=== PATIENT | male | born 1990 | race Caucasian/White ===

== ENCOUNTER 2025-01-13 12:54 | Emergency (ER) | payer BC, SELFPAY ==
[2025-01-13 12:57] VITALS: BP 141/98
[2025-01-13 13:11] LABS: Hematocrit 45.1 % (39.0-52.0); Hemoglobin 15.3 g/dL (13.0-18.0); Mean Corp Hgb Conc. 33.9 g/dL (33.0-37.0); Mean Corpuscular Volume 88.4 fL (80.0-94.0); Nucleated Red Blood Cells % 0 % (-); Platelet Count 291 10^3/uL (130-400); Red Cell Dist. Width 11.9 % (11.5-14.5)
[2025-01-13 13:30] LABS: Blood Urea Nitrogen 11 mg/dl (9-20); Calcium 10.1 mg/dl (8.4-10.2); Carbon Dioxide 27 mmol/L (22-30); Chloride 105 mmol/L (98-107); Glucose 103 mg/dl (70-99); Sodium 142 mmol/L (135-145); eGFR > 60.00
[2025-01-13 13:35] LABS: Troponin I < 0.012 ng/ml
--- NOTE | 2025-01-13 14:46 | ED.GENMED ---
History of Present Illness
General
Chief Complaint: Heart Rate Problem
Source: patient, spouse and family
Exam Limitations: none
Time Seen by Provider: 01/13/25 14:44
Nursing documentation reviewed up to this point in time: agreed with
History of Present Illness
History of Present Illness:
Note:
CHIEF COMPLAINT(S)
Palpitations.
HISTORY OF PRESENT ILLNESS
The patient is a 34-year-old male with a three-month history of hypertension. He has been experiencing episodes of heart palpitations, the most recent of which led him to seek emergency care. The patient was concerned he was going into cardiac
arrest. He reports feeling his heart rate significantly increased for about an hour today, though it improved without intervention. His heart rate was noted to be around 150 beats per minute initially. The patient described feeling improved upon
arrival at the emergency department. He reported previous episodes of similar symptoms over the past three months. The patient recently stopped a beta deborah prescribed for blood pressure management after experiencing side effects. He is currently
taking Lorazepam as a rescue medication for stress. The patient consumes alcohol and experiences withdrawal and dehydration symptoms following consumption, which may exacerbate his symptoms. He reports some stress and occasional caffeine
consumption. Recent blood work, including testosterone levels, a hormone panel, and hemoglobin A1c, was conducted at [facility], although results are still pending. The patient consumes nicotine in the form of Zyns.
SOCIAL DETERMINANTS AFFECTING HEALTH
The patient admits to occasional alcohol and caffeine consumption, potentially contributing to his symptoms. Stress is also noted to be a contributing factor.
MEDICATIONS
- Lorazepam (as needed)
- Buspirone (recently started)
- Omeprazole
- Nicotine products (Zyns)
PHYSICAL EXAM
General: Alert, no acute distress.
Skin: Warm, dry.
Head: Normocephalic, atraumatic.
Neck: Supple, trachea midline.
Eyes, Ears, Nose, Mouth and Throat: Oral mucosa moist.
Cardiovascular: Normal peripheral perfusion, No edema.
Respiratory: Respirations are non-labored.
Gastrointestinal: Abdomen nondistended.
Back: Normal range of motion, Normal alignment.
Musculoskeletal: Normal range of motion, normal strength.
Neurological: Alert and oriented to person, place, time, and situation, No focal neurological deficit observed.
Psychiatric: Cooperative, appropriate mood & affect.
PLAN
1. Follow-up with Dr. Addison for continued cardiology evaluation.
2. Consideration for a heart monitor to assess heart rhythm.
3. Continue Omeprazole for gastric symptoms, with a switch to intravenous Protonix for stronger acid suppression if needed.
4. Avoid stimulants such as caffeine and alcohol, which may exacerbate symptoms.
5. Evaluate recent blood work when results become available.
6. Chest X-ray to assess any acute changes.
DIFFERENTIAL DIAGNOSIS
The Differential Diagnosis includes, in no particular order and is not limited to:
1. Anxiety-related tachycardia
2. Paroxysmal supraventricular tachycardia
3. Atrial fibrillation
4. Premature ventricular contractions
5. Hyperthyroidism
6. Mitral valve prolapse
7. Electrolyte imbalance
8. Catecholamine surge from alcohol withdrawal
9. Panic disorder
10. Sinus tachycardia caused by stress or stimulants.
EKG
My independent EKG interpretation is:
- Time of EKG: Not specified
- Rhythm: Sinus tachycardia
- Heart rate: 119 bpm
- NV interval: Normal
- QRS duration: Normal
- QT interval: Normal
- Claude: Normal
- Abnormalities: None observed
Disposition:
SUMMARY OF ENCOUNTER
The patient presented with tachycardia and a history of alcohol use. Upon evaluation, the tachycardia was determined to be likely related to alcohol intoxication. The patient was offered resources for alcohol rehabilitation but declined. The
patients was also provided with resources for alcohol rehabilitation and expressed a willingness to pursue them independently. Pulmonary embolism (PE) and acute coronary syndrome (ACS) were not suspected. The patient was stable for discharge.
DISPOSITION
Discharge.
ASSESSMENT
Tachycardia likely related to alcohol intoxication.
PATIENT EDUCATION AND COUNSELING
The patient was offered resources for alcohol rehabilitation, which he declined. His was privately counseled and provided with resources for alcohol rehab, expressing her intention to pursue them independently.
FOLLOW-UP INSTRUCTIONS
The patient and his were encouraged to seek resources for alcohol rehabilitation.
MEDICAL DECISION MAKING
- Number and Complexity of Problems Addressed: Chronic conditions affecting care include the patients alcohol use. Differential diagnosis includes anxiety-related tachycardia, paroxysmal supraventricular tachycardia, atrial fibrillation, premature
ventricular contractions, hyperthyroidism, mitral valve prolapse, electrolyte imbalance, catecholamine surge from alcohol withdrawal, panic disorder, and sinus tachycardia caused by stress or stimulants.
- Data:
Category 1
My independent interpretation of EKG indicates sinus tachycardia with a heart rate of 119 beats per minute.
Category 3
Discussed management options with the patients including resources for alcohol rehabilitation.
- Risk:
Consideration of Admission/Observation: Escalation of care including admission/observation was considered given the complexity and risk of the patients presenting complaint and underlying comorbidities. However, ultimately the patient was deemed
safe for outpatient management with close follow-up. Work-up was reassuring, did not reveal any acute life/organ threatening processes, patients symptoms were well controlled upon reevaluation, examination was reassuring, vitals were stable, patient
agreeable with discharge, and reliable for follow-up.
Care significantly affected by Social Determinants of Health: The patients alcohol use contributes to his health issues and complications.
DIAGNOSIS
1. Tachycardia, likely related to alcohol intoxication, ICD-10 code R00.0.
2. Alcohol use disorder, ICD-10 code F10.10.
Past History
Past History
ED Past Medical History: Psychiatric (Generalized anxiety disorder)
ED Past Surgical History: Orthopedic
Social History
Tobacco: Smoker
Alcohol: Occasional
Drug: None
Personal:
Living: with family
Employment: Employed
Family History
Family History: Unable to obtain
Phy Exam
Physical Exam
Physical Exam:
.
Course
Orders/Labs/Results
Orders:
Orders
01/13/25 12:55
EKG [Electrocardiogram (*1)] Urgent
Reason for Study: Tachycardia
EKG- Treatment ONCE
01/13/25 12:56
IV Insert/Care/Rem.- Treatment PRN
01/13/25 13:05
Alcohol Urgent
Basic Metabolic Panel Urgent
Complete Blood Count/With Diff Urgent
Troponin I Urgent
01/13/25 15:01
IV Insert/Care/Rem.- Treatment PRN
0.9% Sodium Chloride 1000 ml [Nss] 1,000 ml IV BOLUS
Pantoprazole [Protonix IV] 40 mg IV NOW STA
CR Chest - 2 Views Urgent
Comment:
Reason For Exam: palpitations
01/13/25 15:49
Add On- LAB Urgent
Tests Added?: alcohol
Abnormal Lab Results
01/13/25
13:05
Glucose 103 H mg/dl
(70-99)
01/13/25 13:05
01/13/25 13:05
Vital Signs
Initial and Last Documented VS:
Initial Vital Signs
Temp Pulse Resp BP Pulse Ox
98.2 F 122 15 141/98 97
01/13/25 12:57 01/13/25 12:57 01/13/25 12:57 01/13/25 12:57 01/13/25 12:57
Last Documented Vital Signs
Temp Pulse Resp BP Pulse Ox
98.2 F 102 19 132/91 98
01/13/25 12:57 01/13/25 17:45 01/13/25 17:45 01/13/25 15:57 01/13/25 16:04
*Pulse Oximetry
SaO2: 97
Oxygen Mode of Delivery: Room air
Patient hypoxic: no
*Critical Care Note
Total Time (30-74mins, 75-104mins- exclusive of procedures): Not Applicable
ED Attending Note
-
Portions of this chart may have been created with voice recognition software.� Occasional wrong word or��sound alike� substitutions may have occurred due to the inherent limitations of voice recognition software.
Discharge Plan
Departure
Patient Disposition: Home (Routine Discharge)
Date of Disposition: 01/13/25
Time of Disposition: 17:19
Patient with high blood pressure during this ER visit?: Yes
Condition: Good
Discharge Problem:
Alcohol intoxication, Tachycardia
Instructions: Alcohol use - When is drinking a problem?, Tachycardia, Alcohol intoxication - ED (DC), BLOOD PRESSURE
Prescriptions:
No Action
No Meds [No Current Medications]
0
ondansetron HCl 4 MG tablet
4 mg PO Q8HPRN PRN (Reason: nausea) Qty: 10 0RF
lorazepam 0.5 MG tablet
0.5 mg PO Q4HPRN PRN (Reason: dizziness) Qty: 15 0RF
methylprednisolone [Medrol ([place])] 4 mg tablets,dose pack
4 mg PO DAILY Qty: 21 0RF
oxycodone-acetaminophen [Percocet] 5-325 mg tablet
1 tab PO Q4HPRN PRN (Reason: pain) Qty: 14 0RF
clindamycin HCl 300 mg capsule
300 mg PO Q6H 10 Days Qty: 40 0RF
Referrals:
Girish Parsons DO [Active, Cardiology] - Call in 1-3 days for appt
Jose Goetz DO [Family Provider, Family Practice]
Interventions
Interventions:
*Risk Screen - Suicide Last Done: 01/13/25 12:57
*General Assessment Last Done: 01/13/25 12:57
*Neglect/Abuse Screening Last Done: 01/13/25 12:57
*ED- Fall Risk Assessment Last Done: 01/13/25 15:55
*ED COVID-19 Vaccine History Last Done: 01/13/25 12:57
*ED Influenza Vaccine History Last Done: 01/13/25 12:57
*Nursing Disposition Last Done: 01/13/25 17:57
ED- Cardiac Assessment Last Done: 01/13/25 16:03
ED- Pulmonary Assessment Last Done: 01/13/25 16:03
Discharge Date and Time
Discharge Date/Time: 01/13/25 18:12
Print Language: [place]
[2025-01-13 15:23] VITALS: BMI 28.7
[2025-01-13] MEDS: PROTONIX IV 40 MG IV (15:31)
[2025-01-13] MEDS: NSS 1000 IV (15:31)
[2025-01-13 15:57] VITALS: BP 132/91
== END 2025-01-13 18:12 | disposition home or self-care (01) ==
LOC: EMR 12:54
PROVIDERS: Emergency Medicine; EMERGENCY PHYSICIAN Emergency Medicine; FAMILY PHYSICIAN Family Medicine
DX: F10.129 Alcohol abuse with intoxication, unspecified (principal); I10 Essential (primary) hypertension; F41.1 Generalized anxiety disorder; F17.200 Nicotine dependence, unspecified, uncomplicated
CPT/HCPCS: 99284; 96374; 96361; 71046; 80048; 82077; 84484; 85025; 93005